=== PATIENT | female | born 1995 | race African-American/Black ===

== ENCOUNTER 2016-03-13 11:49 | Emergency (ER) | payer MEDICAID ==
--- NOTE | 2016-03-13 12:32 | ED Physician Chart ---
Chief Complaint/HPI - Patient Information Date Seen:: 03/13/16 Time Seen:: 11:55 Chief Complaint:: Skin lesion in L axillary region for about one week. History of Present Illness:: Pt noticed painful lesion in L axillary region for about one week. No known injury or insect bite to the affected area. No fever. Taking po well without N/ V/D. Allergies:: Allergies Allergy/AdvReac Type Severity Reaction Status Date / Time No Known Allergies Allergy Verified 03/13/16 12:03 Vitals:: Vital Signs - 8 hr 03/13/16 12:04 Temp 98.0 F HR 95 RR 22 BP 112/65 O2 Sat % 100 Historian:: Patient Family MD/PCP:: Yo Ortega LMP:: 01/02/16 with confirmed , followed at [facility] with Dr. Camacho. Next appt 03/17/16. Review:: Nurse's Note Reviewed Review of Systems - Review of Systems General/Constitutional: No fever, No chills, No weight loss, No weakness, No diaphoresis, No edema, No loss of appetite Skin: Skin lesions (in L axillary region. See HPI.), No bruising Head: No headache, No light-headedness Eyes: No loss of vision, No pain, No diplopia ENT: No earache, No nasal drainage, No sore throat, No tinnitus Neck: No neck pain, No swelling, No thyromegaly, No stiffness, No mass noted Cardio Vascular: No chest pain, No palpitations, No PND, No orthopnea, No edema Pulmonary: No SOB, No cough, No sputum, No wheezing GI: No nausea, No vomiting, No diarrhea, No pain, No melena, No hematochezia, No constipation, No hematemesis G/U: No dysuria, No frequency, No hematuria Paintings Restorer: No vaginal discharge, No abnormal vaginal bleed, No contraction Musculoskeletal: No bone or joint pain, No back pain, No muscle pain Endocrine: No polyuria, No polydipsia Psychiatric: No prior psych history Allergic/Immuno: No urticaria, No angioedema Neurological: No syncope, No focal symptoms, No weakness, No paresthesia, No headache, No seizure, No dizziness, No confusion, No vertigo Past Medical History - Past Medical History Past Medical History: No significant medical hx Family History: HTN (mother) Social History: Non Smoker, No Alcohol, No Drug Use, Single, Other (lives with her mother.) Employment:: unemployed. Surgical History: None Psychiatricy History: None Medication: Reviewed Family Medical History - Family Member Mother History Unknown: Yes Physical Exam - Physical Examination General/Constitutional: Awake, Well-developed, well-nourished, Alert, No distress, GCS 15, Non-toxic appearing, Ambulatory Other Gen/Cons comments:: Breathes comfortably, speaks clearly, and ambulates without difficulty. Head: Atraumatic Eyes: Lids, conjuctiva normal, PERRL, EOMI Other Skin comments:: There is an area of approx 3 x 1 cm raw skin with mild peripheral erythema at at L axilla. No exudate. No induration or crepitus. ENMT: External ears, nose nl, Nasal exam nl, Oropharynx nl, Tonsils nl Neck: Nontender, Full ROM w/o pain, No nuchal rigidity, No stridor Respiratory: Nl effort/Exclusion, Clear to Auscultation, No Wheeze/Rhonchi/Rales Cardio Vascular: RRR, No murmur, gallop, rubs, NL S1 S2 GI: No tenderness/rebounding/guarding, No organomegaly, No hernia, Normal BS's, Nondistended, No mass/bruits, No McBurney tenderness Other GI comments:: Obese but soft. Extremities: No tenderness or effusion, Full ROM, normal strength in all extremities, No edema, Normal digits & nails Neuro/Psych: Alert/oriented (oriented x 3), Judgement/insight normal, Mood normal, Normal gait, No focal deficits ED Septic Shock - . Is Septic Shock (SBP<90, OR Lactate>4 mmol\L) present?: No - <6hrs of presentation: Vital Signs: Vital Signs - 8 hr 03/13/16 12:04 Temp 98.0 F HR 95 RR 22 BP 112/65 O2 Sat % 100 Reassessment (Disposition) - Reassessment Reassessment:: 1300 Pt remains stable. Pt requests to go home now. Aftercare instructions given. Reassessment Condition:: Improved - Diagnosis Diagnosis:: Early cellulitis at L axillary region, stable. - Aftercare/Follow up Instructions Aftercare/Follow-Up Instructions:: Refer to Discharge Instructions Notes:: Keep affected area clean and dry. Wound care instructions given. May take Tylenol 500 mg tab one tab po q6h prn pain. F/U with PCP at [facility] in 1 to 2 days for recheck. Return to ER immediately if condition worsens or if any further questions/problems. Medication Prescribed:: Keflex 500 mg tab one tab po q6h for 10 days. D-40 R-0 - Patient Disposition Discharge/Transfer:: Home Time:: 13:05 Condition at Disposition:: Stable, Improved ED Discharge Plan - Patient Disposition Prescriptions: Cephalexin [Keflex] 500 mg PO Q6HR #0 cap Instructions: Cellulitis Accepting Physician: , Primary [Other] - 1-3 Days
[2016-03-13] MEDS ORDERED: Triple Antibiotic 0.94 gm Pkt TP STA (12:36)
[2016-03-13] MEDS ORDERED: Triple Antibiotic 0.94 gm Pkt TP ONE (12:40)
== END 2016-03-13 12:55 | disposition home or self-care (01) ==
LOC: ER 11:49
DX: L03.112 Cellulitis of left axilla (principal)
CPT/HCPCS: Z7502; Z7610

== ENCOUNTER 2016-06-02 14:11 | Emergency (ER) | payer MEDICAID ==
--- NOTE | 2016-06-02 15:00 | ED Physician Chart ---
Chief Complaint/HPI - Patient Information Date Seen:: 06/02/16 Time Seen:: 14:45 Chief Complaint:: abdominal pain History of Present Illness:: Patient has had diffuse crampy abdominal pain and back pain for last 3 days. She has been nauseated and has vomited about 3 times a day. She denies diarrhea. Patient is 5 months . She denies any vaginal bleeding. Allergies:: Allergies Allergy/AdvReac Type Severity Reaction Status Date / Time No Known Allergies Allergy Verified 06/02/16 14:21 Vitals:: Vital Signs - 8 hr 06/02/16 14:11 Temp 97.3 F HR 67 RR 18 BP 128/75 O2 Sat % 99 Historian:: Patient Review:: Nurse's Note Reviewed Review of Systems - Review of Systems General/Constitutional: No fever, No chills Skin: No skin lesions Head: No headache Eyes: No loss of vision ENT: No earache, No nasal drainage, No sore throat Neck: No neck pain, No thyromegaly Cardio Vascular: No chest pain, No palpitations, No edema Pulmonary: No SOB GI: Nausea, Vomiting, Pain G/U: No dysuria Musculoskeletal: No bone or joint pain Endocrine: No polyuria, No polydipsia Psychiatric: No prior psych history, No depression Hematopoietic: No bruising Allergic/Immuno: No urticaria Neurological: No syncope Past Medical History - Past Medical History Past Medical History: No significant medical hx, Other (patient gets episodes of shortness of breath at rest not diagnosed as asthma) Family History: HTN Social History: Non Smoker, No Alcohol Surgical History: None Psychiatricy History: None Medication: Reviewed Family Medical History - Family Member Mother History Unknown: Yes Living Status: Still Living Hx Family Hypertension: Yes Physical Exam - Physical Examination General/Constitutional: Well-developed, well-nourished, Alert Head: Atraumatic Eyes: Lids, conjuctiva normal, PERRL Skin: Nl inspection, No rash, No skin lesions, No ecchymosis ENMT: External ears, nose nl, TM canals nl, Nasal exam nl, Lips, teeth, gums nl , Oropharynx nl, Tonsils nl Neck: No nuchal rigidity Respiratory: Nl effort/Exclusion, Clear to Auscultation, No Wheeze/Rhonchi/Rales Cardio Vascular: RRR GI: No organomegaly, No hernia, Normal BS's, Nondistended, No mass/bruits Other GI comments:: 1 out of four lower abdominal tenderness : No CVA tenderness Extremities: Normal digits & nails Neuro/Psych: No focal deficits Misc: Normal back Labs/Radiology/EKG Results - Lab Results Comments:: Urinalysis was normal except for ketones present in the urine - Radiology Results Results: Pelvic ultrasound demonstrated a 19 week 4 day normal intrauterine Assessment - Assessment General Assessment: Patient is probably slightly dehydrated. She was encouraged to drink lots of Gatorade half water. ED Septic Shock - . Is Septic Shock (SBP<90, OR Lactate>4 mmol\L) present?: No - <6hrs of presentation: Vital Signs: Vital Signs - 8 hr 06/02/16 14:11 Temp 97.3 F HR 67 RR 18 BP 128/75 O2 Sat % 99 Reassessment (Disposition) - Reassessment Reassessment Condition:: Improved - Diagnosis Diagnosis:: Gastritis; normal intrauterine - Aftercare/Follow up Instructions Aftercare/Follow-Up Instructions:: Refer to Discharge Instructions Medication Prescribed:: Reglan 10 mg #20 to take 1 three times a day as necessary - Patient Disposition Discharge/Transfer:: Home Condition at Disposition:: Stable, Improved ED Discharge Plan - Patient Disposition Condition at Disposition: Stable Additional Instructions: TOLERATED.
[2016-06-02 15:33] LABS: URINE BILIRUBIN SMALL (NEGATIVE); URINE BLOOD TRACE (NEGATIVE); URINE COLOR YELLOW; URINE GLUCOSE (UA) NEGATIVE (NEGATIVE); URINE KETONE >=80 mg/dL (NEGATIVE)
[2016-06-02 15:34] LABS: URINE BACTERIA NONE SEEN /hpf (NONE SEEN); URINE EPITHELIAL CELLS NONE SEEN /lpf (FEW); URINE PH 5.5; URINE PROTEIN NEGATIVE (NEGATIVE); URINE RBC NONE SEEN /hpf (0-5); URINE UROBILINOGEN 0.2 E.U./dL (0.2 - 1.0); URINE WBC NONE SEEN /hpf (0-5)
--- NOTE | 2016-06-03 09:06 | Diagnostic Imaging Report ---
OB ultrasound HISTORY: Pain The exam demonstrates a single intrauterine gestation with a breech presentation and longitudinal lie. motion and cardiac activity are noted (158 BPM). Detailed anatomic evaluation not performed at this time. The spine, limbs, and intracardiac anatomy are incompletely visualized. No other obvious abnormalities. Amniotic fluid volume appears normal (PRANAV equals 11.2). Placenta is in an anterior location and grade one. Measurements: BPD equals 4.56 cm equals 19 weeks 5 days Head circumference equals 17.2 cm equals 19 weeks 5 days Abdominal circumference equals 14.2 cm equals 19 weeks 4 days Femur length equals 3.2 cm equals 20 weeks 0 days IMPRESSION: 1. Single intrauterine gestation with an approximate composite age of 19 weeks 4 days +/- 10 days
== END 2016-06-02 16:33 | disposition home or self-care (01) ==
LOC: ER 14:11
DX: O99.612 Diseases of the digestive system complicating pregnancy, second trimester (principal); K29.70 Gastritis, unspecified, without bleeding
CPT/HCPCS: 76802-TC; 81001-TC

== ENCOUNTER 2016-06-07 08:43 | Emergency (ER) | payer MEDICAID ==
--- NOTE | 2016-06-07 09:19 | ED Physician Chart ---
Chief Complaint/HPI - Patient Information Date Seen:: 06/07/16 Time Seen:: 08:45 Chief Complaint:: Left Thigh Swelling History of Present Illness:: Onset x 2 days of localized left inner thigh swelling and redness; no itching, pain; no fever, chills; no C/P, dyspnea, Abd pain, A/N/V/D/C; no rectal or vaginal involvement; pt is 5 months ; no pelvic pain; no vaginal bleeding or discharge Allergies:: Allergies Allergy/AdvReac Type Severity Reaction Status Date / Time No Known Allergies Allergy Verified 06/07/16 08:51 Vitals:: Vital Signs - 8 hr 06/07/16 08:43 Temp 97.0 F HR 90 RR 16 BP 121/67 O2 Sat % 99 Historian:: Patient Review:: Nurse's Note Reviewed Review of Systems - Review of Systems General/Constitutional: No fever, No chills, No weight loss, No weakness, No diaphoresis, No edema, No loss of appetite Skin: Skin lesions, Rash, No bruising Head: No headache, No light-headedness Eyes: No loss of vision, No pain, No diplopia ENT: No earache, No nasal drainage, No sore throat, No tinnitus Neck: No neck pain, No swelling, No thyromegaly, No stiffness, No mass noted Cardio Vascular: No chest pain, No palpitations, No PND, No orthopnea, No edema Pulmonary: No SOB, No cough, No sputum, No wheezing GI: Nausea, No vomiting, No diarrhea, No pain, No melena, No hematochezia, No constipation, No hematemesis G/U: No dysuria, Frequency, No hematuria Meals On Wheels Driver: No vaginal discharge, Abnormal vaginal bleeding, No contraction Musculoskeletal: No bone or joint pain, Back pain, Muscle pain Endocrine: Polyuria, No polydipsia Psychiatric: No prior psych history, No depression, No anxiety, No suicidal ideation Hematopoietic: No bruising, No lymphadenopathy Allergic/Immuno: No urticaria, No angioedema Neurological: No syncope, No focal symptoms, No weakness, No paresthesia, No headache, No seizure, No dizziness, No confusion, No vertigo Past Medical History - Past Medical History Past Medical History: Other (IUP) Family History: HTN Social History: Non Smoker, No Alcohol, No Drug Use Surgical History: None Psychiatricy History: None Medication: Reviewed Family Medical History - Family Member Mother History Unknown: Yes Living Status: Still Living Hx Family Hypertension: Yes Physical Exam - Physical Examination General/Constitutional: Awake, Well-developed, well-nourished, Alert, No distress, GCS 15, Non-toxic appearing, Ambulatory Head: Atraumatic Eyes: Lids, conjuctiva normal, PERRL, EOMI Skin: Nl inspection, No rash, No ecchymosis, Well hydrated, No lymphadenopathy Other Skin comments:: Left Inner Proximal Medial Femoral regional localized Cellulitis around a papular lesion; no FBs; no obvious abscee; good motor, and sensory functions; good NV functions ENMT: External ears, nose nl, Nasal exam nl, Lips, teeth, gums nl Neck: Nontender, Full ROM w/o pain, No JVD, No nuchal rigidity, No bruit, No mass, No stridor Respiratory: Nl effort/Exclusion, Clear to Auscultation, No Wheeze/Rhonchi/Rales Cardio Vascular: RRR, No murmur, gallop, rubs, NL S1 S2 GI: No tenderness/rebounding/guarding, No organomegaly, No hernia, Normal BS's, Nondistended, No mass/bruits, No McBurney tenderness : No CVA tenderness Extremities: No tenderness or effusion, Full ROM, normal strength in all extremities, No edema, Normal digits & nails Neuro/Psych: Alert/oriented, DTR's symmetric, Normal sensory exam, Normal motor strength, Judgement/insight normal, Mood normal, Normal gait, No focal deficits Misc: normal gait, Normal back, No paraspinal tenderness ED Septic Shock - . Is Septic Shock (SBP<90, OR Lactate>4 mmol\L) present?: No - <6hrs of presentation: Vital Signs: Vital Signs - 8 hr 06/07/16 08:43 Temp 97.0 F HR 90 RR 16 BP 121/67 O2 Sat % 99 Reassessment (Disposition) - Reassessment Reassessment Condition:: Improved - Diagnosis Diagnosis:: Localized Cellulitis; Papule; Cyst; IUP - Aftercare/Follow up Instructions Aftercare/Follow-Up Instructions:: Counseled pt regarding lab results/diagnosis & need follow up, Refer to Discharge Instructions, Counseled pt & family regarding lab results/diagnosis & need follow up Medication Prescribed:: Rx: Keflex 500mg po qid x 10 days; Neosporin ointment bid x 14 days; Stop taking Ibuprofen; Tylenol 500mg po qid prn pain/Irritation/fever; Apply Warm Compresses to the affected area as much as tolerated - Patient Disposition Discharge/Transfer:: Home (ACIs given for all Dx; Refer to [facility] Records Management Officer/ Vascular Surgeon/[facility]; F/U with PMD in one day or prn; RTER prn if existing s/s reoccur and/or get worse and/or any other new s/s occur; RTER prn if concerned) Condition at Disposition:: Stable, Improved
== END 2016-06-07 09:24 | disposition short-term general hospital (02) ==
LOC: ER 08:43
DX: L03.116 Cellulitis of left lower limb (principal); R23.8 Other skin changes; D36.7 Benign neoplasm of other specified sites
CPT/HCPCS: Z7502

== ENCOUNTER 2016-07-30 14:20 | Emergency (ER) | payer MEDICAID ==
--- NOTE | 2016-07-30 15:06 | ED Physician Chart ---
Chief Complaint/HPI - Patient Information Date Seen:: 07/30/16 Time Seen:: 15:06 Chief Complaint:: LOW ABD PRESSURE AND VAG BLD AND MUCUS DISCHARGE History of Present Illness:: This 20-year-old female is 2 para 1 and for the past 3 days has been having pressure in the lower abdomen with the discomfort rating of 8/10. She has some relief with elevation of both lower extremities and the discomfort worsens when she is standing or walking. Hot showers also make the discomfort worse. There is mild radiation of the pain to the low back. She denies any associated nausea or vomiting or diarrhea. The patient has been having Houston Lopez contractions for the past 2 months. An US Study 2 months ago showed a low lying placenta and the patient was told that may be the reason that she was having Arun Lopez contractions. The pat has had no fever or chills. Allergies:: Allergies Allergy/AdvReac Type Severity Reaction Status Date / Time No Known Allergies Allergy Verified 07/30/16 14:35 Vitals:: Vital Signs - 8 hr 07/30/16 14:36 Temp 98.4 F HR 99 RR 18 BP 105/59 O2 Sat % 99 Review of Systems - Review of Systems General/Constitutional: No fever, No chills, No weakness, No diaphoresis, No edema, No loss of appetite Skin: No skin lesions, No rash, No bruising Head: No headache, No light-headedness Eyes: No loss of vision, No pain, No diplopia, Other (wears contact lenses.) ENT: No earache, No sore throat, No tinnitus Neck: No neck pain, No swelling, No thyromegaly, No stiffness, No mass noted Cardio Vascular: No chest pain, No palpitations, No orthopnea, No edema (mild respiratory distress.) Pulmonary: No cough, No sputum, No wheezing GI: No nausea, No vomiting, No diarrhea, Pain, No melena, No hematochezia, No hematemesis G/U: No dysuria, Frequency, No hematuria Retaining Room Cutter: Vaginal discharge, No abnormal vaginal bleed Musculoskeletal: No bone or joint pain, No muscle pain Psychiatric: No prior psych history, No depression, No suicidal ideation Hematopoietic: No bruising, No lymphadenopathy Neurological: No syncope, No focal symptoms, No weakness, No paresthesia, No headache, No seizure, No dizziness, No confusion, No vertigo Family Medical History - Family Member Mother History Unknown: Yes Ethnicity: Non- Living Status: Still Living Hx Family Hypertension: Yes Physical Exam - Physical Examination General/Constitutional: Well-developed, well-nourished, Alert, No distress, Non- toxic appearing, Ambulatory Other Gen/Cons comments:: Mild distress from the complained of pain. Head: Atraumatic Eyes: Lids, conjuctiva normal, PERRL, EOMI Other Eyes comments:: Wearing contact lenses. Skin: Nl inspection, No rash, No skin lesions, No ecchymosis, Well hydrated, No lymphadenopathy ENMT: External ears, nose nl, Nasal exam nl, Lips, teeth, gums nl, Oropharynx nl , Tonsils nl Neck: Nontender, No nuchal rigidity, No stridor Other Neck comments:: Patient's neck is too thick to evaluate JVD. Patient has a moderate enlargement of the thyroid gland. Respiratory: Nl effort/Exclusion, Clear to Auscultation, No Wheeze/Rhonchi/Rales Cardio Vascular: RRR, No murmur, gallop, rubs, NL S1 S2 Other Cardio Vascular comments:: Good pulses all 4 extremities. GI: No organomegaly, No hernia, Normal BS's Other GI comments:: Abdomen mildly distended secondary to . There is [id number] tenderness in the suprapubic region with no associated rebound or guarding. No tenderness in the region of McBurney's point. : No CVA tenderness Extremities: No tenderness or effusion, Full ROM, normal strength in all extremities, Normal digits & nails Other Extremities comments:: The patient has trace pretibial edema in both lower extremities. Neuro/Psych: Alert/oriented, DTR's symmetric, Normal sensory exam, Judgement/ insight normal, Mood normal, Normal gait, No focal deficits Other Neuro/Psych comments:: No hyperreflexia. Misc: Normal back, No paraspinal tenderness (no spinal tenderness or deformities.) ED Septic Shock - <6hrs of presentation: Vital Signs: Vital Signs - 8 hr 07/30/16 14:36 Temp 98.4 F HR 99 RR 18 BP 105/59 O2 Sat % 99
[2016-07-30 15:53] LABS: % BASOPHILS 0.3 % (0.0-2.0); % EOSINOPHILS 0.9 % (0.0-5.0); % LYMPHOCYTES 16.1 % (20.0-50.0); % MONOCYTES 3.9 % (2.0-10.0); % NEUTROPHILS 78.8 % (40.0-80.0); HEMATOCRIT 33.7 % (35.0-45.0); HEMOGLOBIN 11.3 gm/dL (11.7-15.5); MEAN CELL VOLUME 81.8 fl (81-100); MEAN CORPUSCULAR HEMOGLOBIN 27.5 pg (27.0-31.0); MEAN CORPUSCULAR HGB CONC 33.6 pg (28.0-36.0); MEAN PLATELET VOLUME 7.6 fl; NEUTROPHILE ABSOLUTE 10.1 Th/cmm (1.8-8.0); PLATELET COUNT 197 Th/cmm (150-400); RED BLOOD COUNT 4.12 Mil/cmm (3.80-5.10); RED CELL DISTRIBUTION WIDTH 12.1 % (11.5-20.0)
[2016-07-30 15:57] LABS: WHITE BLOOD COUNT 12.7 Th/cmm (4.8-10.8)
--- NOTE | 2016-07-31 10:47 | Diagnostic Imaging Report ---
OB ultrasound (Limited) HISTORY: Pain, abnormal bleeding The exam demonstrates a single intrauterine gestation with a cephalic presentation. motion and cardiac activity are noted (165 BPM). anatomic evaluation and measurements not performed at this time. Overall exam is limited due to patient's size and body habitus. Amniotic fluid volume is normal (PRANAV equals 9.6). IMPRESSION: 1. Limited exam 2. Single intrauterine gestation with a cephalic presentation
== END 2016-07-30 18:34 | disposition short-term general hospital (02) ==
LOC: ER 14:20
DX: O26.899 Other specified pregnancy related conditions, unspecified trimester (principal); O46.90 Antepartum hemorrhage, unspecified, unspecified trimester; R10.9 Unspecified abdominal pain; Z3A.00 Weeks of gestation of pregnancy not specified
CPT/HCPCS: 36415-UA; 76815-TC; 83605; 84702-TC; 85025-TC; 86900-TC; 86901-TC

== ENCOUNTER 2017-05-02 23:11 | Emergency (ER) | payer MEDICAID ==
[2017-05-02] MEDS ORDERED: Maalox 30 mL Cup PO ONE (23:49)
[2017-05-02] MEDS ORDERED: Maalox 30 mL Cup ONE (23:49)
--- NOTE | 2017-05-02 23:54 | ED Physician Chart ---
ED Chief Complaint/HPI - Patient Information Date Seen:: 05/02/17 Time Seen:: 23:50 Chief Complaint:: epigastric pain History of Present Illness:: Patient developed epigastric pain 2 hours ago. No vomiting or diarrhea. No vaginal bleeding. Patient took ibuprofen for her abdominal pain tonight Patient is 4 months . Allergies:: Allergies Allergy/AdvReac Type Severity Reaction Status Date / Time No Known Allergies Allergy Verified 07/30/16 14:35 Vitals:: Vital Signs - 8 hr 05/02/17 23:20 Temp 97.0 F HR 86 RR 20 BP 119/56 O2 Sat % 99 Historian:: Patient Review:: Nurse's Note Reviewed ED Review of Systems - Review of Systems General/Constitutional: No fever, No chills Skin: No skin lesions Head: No headache Eyes: No loss of vision ENT: No earache Neck: No neck pain, No swelling Cardio Vascular: No chest pain, No palpitations Pulmonary: No SOB GI: No nausea, No vomiting, No diarrhea, Pain Musculoskeletal: No bone or joint pain Endocrine: No polyuria Psychiatric: No prior psych history Hematopoietic: No bruising Neurological: No syncope, No focal symptoms ED Past Medical History - Past Medical History Past Medical History: No significant medical hx Family History: HTN Social History: Non Smoker, No Alcohol Surgical History: None Psychiatricy History: None Family Medical History - Family Member Mother History Unknown: Yes Ethnicity: Non- Living Status: Still Living Hx Family Hypertension: Yes ED Physical Exam - Physical Examination General/Constitutional: Well-developed, well-nourished, Alert, No distress Head: Atraumatic Eyes: Lids, conjuctiva normal Skin: Nl inspection ENMT: External ears, nose nl, TM canals nl Neck: No nuchal rigidity Cardio Vascular: RRR, No murmur, gallop, rubs, NL S1 S2 GI: No organomegaly, No hernia, Normal BS's Other GI comments:: Epigastric tenderness : No CVA tenderness Extremities: No tenderness or effusion Neuro/Psych: No focal deficits Misc: No paraspinal tenderness ED Assessment - Assessment General Assessment: At 0023 patient's abdominal pain was improved. I counseled the patient not to take ibuprofen for abdominal pain. Also ibuprofen would be contraindicated in . Told the patient that she might have gallstones and she should sometime in the future have an abdominal ultrasound. However it is not an emergency to diagnose gallstones as a cholecystectomy would not be performed until after her delivery. ED Septic Shock - . Is Septic Shock (SBP<90, OR Lactate>4 mmol\L) present?: No - <6hrs of presentation: Vital Signs: Vital Signs - 8 hr 05/02/17 23:20 Temp 97.0 F HR 86 RR 20 BP 119/56 O2 Sat % 99 ED Reassessment (Disposition) - Reassessment Reassessment Condition:: Improved - Diagnosis Diagnosis:: Gastritis - Aftercare/Follow up Instructions Aftercare/Follow-Up Instructions:: Refer to Discharge Instructions - Patient Disposition Discharge/Transfer:: Home Condition at Disposition:: Stable, Improved
== END 2017-05-03 00:40 | disposition home or self-care (01) ==
LOC: ER 23:11
DX: K29.70 Gastritis, unspecified, without bleeding (principal)